=== PATIENT | female | born 2000 | race Two or more races ===

== ENCOUNTER 2018-02-05 18:52 | Outpatient (CLI) | payer OTHER ==
[~2018-02-05 18:52] MED LIST: BACTROBAN OINT22 GM TP; CEPHALEXIN500 M1 PO
== END 2018-02-05 22:00 | disposition home or self-care (01) ==
LOC: RAD 18:52
DX: R05 Cough (principal); J31.0 Chronic rhinitis

== ENCOUNTER 2021-06-08 00:27 | Emergency (ER) | payer OTHER ==
[~2021-06-08] VITALS: Ht 160 cm; Wt 102.1 kg
[2021-06-08] MEDS ORDERED: ACIPHEX20 MG PO (00:48)
[2021-06-08] MEDS ORDERED: CEPHALEXIN500 MG PO (02:51)
[2021-06-08] MEDS ORDERED: KETO10TA2 PO (02:51)
== END 2021-06-08 02:57 ==
LOC: ER 00:27
DX: S61.217A Laceration without foreign body of left little finger without damage to nail, initial encounter (principal); W29.2XXA Contact with other powered household machinery, initial encounter; Y92.019 Unspecified place in single-family (private) house as the place of occurrence of the external cause